=== PATIENT | male | born 1990 | race Caucasian/White ===

== ENCOUNTER 2017-11-26 08:45 | Emergency (ER) | payer SELFPAY ==
[~2017-11-26] VITALS: Ht 177.8 cm; Wt 61.2 kg
[~2017-11-26 08:45] MED LIST: AMOX500C2 PO; AMOX500T2 PO; CEFD300C3 PO; CEPH500C PO; HYDR-229 PO; HYDR-34 PO; HYDR-3456 PO; HYDR-757 PO; HYDR1TAB PO; LIDOCAINE; NAPR550T PO; SULF1TAB35 PO; [UNRECOGNIZED DRUG - OTHER]
[2017-11-26] MEDS ORDERED: NS IV 1000 ML 1,000 ML IV SCH ×2 (09:15)
[2017-11-26 09:31] LABS: BASOPHILS % (AUTO) 0 % (0-10); EOSINOPHILS % (AUTO) 0 % (0-10); HEMATOCRIT 44 % (40-54); HEMOGLOBIN 16.1 G/DL (13.3-17.7); LYMPHOCYTES # (AUTO) 1.4 X 10^3 (1.0-4.0); LYMPHOCYTES % (AUTO) 12 % (12-44); MEAN CORPUSCULAR HEMOGLOBIN 33 PG (25-34); MEAN CORPUSCULAR HGB CONC 36 G/DL (32-36); MEAN CORPUSCULAR VOLUME 90 FL (80-99); MEAN PLATELET VOLUME 9.2 FL (7.4-10.4); MONOCYTES % (AUTO) 9 % (0-12); NEUTROPHILS # (AUTO) 8.8 X 10^3 (1.8-7.8); NEUTROPHILS % (AUTO) 78 % (42-75); PLATELET COUNT 217 10^3/uL (130-400); RED BLOOD COUNT 4.92 10^6/uL (4.35-5.85); RED CELL DISTRIBUTION WIDTH 12.5 % (10.0-14.5); WHITE BLOOD COUNT 11.3 10^3/uL (4.3-11.0)
--- NOTE | 2017-11-26 09:45 | Diagnostic Imaging Report ---
INDICATION: Vomiting. Cough. Comparison with 05/19/2010. FINDINGS: PA and lateral chest show the lungs to be well-aerated. There are no infiltrates or masses. Heart is enlarged. There is no pulmonary edema. No hilar adenopathy. No pneumothorax or pleural effusion. IMPRESSION: Normal PA and lateral chest. Dictated by: Dictated on workstation # [id number]
--- NOTE | 2017-11-26 09:49 | ED Cough/URI ---
General Chief Complaint: Fever-Adult/Adol Stated Complaint: FEVER, VOMITING, BODY ACHES Nursing Triage Note: PT STATES COUGH COLD FLU VOMITING OFF AND ON FOR ABOUT 1 AND 1/2 WEEKS. IBUPROFEN 600 MG IBUPROFEN AT 0800. Source: patient, family Exam Limitations: no limitations History of Present Illness Date Seen by Provider: Nov 26, 2017 Time Seen by Provider: 09:15 Initial Comments This 27-year-old white male presents with a history of the cough congestion and general malaise for the last 10 days. The patient's has had a similar present illness. Next The patient has had vomiting with his present illness. He denies associated diarrhea, flank pain, headache, stiff neck, or photophobia. Allergies and Home Medications Allergies Coded Allergies: NKANo Known Allergies (Unverified Allergy, Mild, 03/17/09) Home Medications Amoxicillin 500 Mg Capsule, 1 EACH PO TID, #20 Prescribed by: ROGELIO LOPEZ on 12/30/13252 Amoxicillin 500 Mg Tablet, 500 MG PO TID, #21 Prescribed by: GOOD GILL on 02/15/161935 Hydrocodone/Acetaminophen 1 Each Tablet, 1 TAB PO Q4-6HR PRN for PAIN, #10 FOR PAIN Prescribed by: ROGELIO LOPEZ on 12/30/13252 Hydrocodone/Acetaminophen 1 Each Tablet, 1 EACH PO Q4H PRN for PAIN, #30 Prescribed by: GOOD GILL on 02/15/161935 Sulfamethoxazole/Trimethoprim 1 Each Tablet, 1 EACH PO BID, #14 Prescribed by: GOOD GILL on 02/15/161935 Constitutional: see HPI, chills, fever, malaise EENTM: No ear pain Respiratory: see HPI, cough, No short of breath, wheezing Cardiovascular: No chest pain Gastrointestinal: No abdominal pain, No diarrhea, vomiting Genitourinary: No dysuria Musculoskeletal: No back pain Skin: No rash Psychiatric/Neurological: No Symptoms Reported Hematologic/Lymphatic: No Symptoms Reported Immunological/Allergic: no symptoms reported Past Grzdyka-Nuykcp-Qnpgxv Hx Patient Social History Alcohol Use: Rarely Uses Alcohol Beverage of Choice: Whiskey Recreational Drug Use: No (SMOKES 1PPD) Type Used: Cigarettes Recent Foreign Travel: No Contact w/Someone Who Travel: No Recent Infectious Disease Expo: No Recent Hopitalizations: No Seasonal Allergies Seasonal Allergies: No Surgeries History of Surgeries: Yes (FACIAL) Respiratory History of Respiratory Disorde: No Cardiovascular History of Cardiac Disorders: No Neurological History of Neurological Disord: No Reproductive System Hx Reproductive Disorders: No Sexually Transmitted Disease: No Genitourinary History of Genitourinary Disor: No Gastrointestinal History of Gastrointestinal Di: No Musculoskeletal History of Musculoskeletal Dis: No Endocrine History of Endocrine Disorders: No Cancer History of Cancer: No Psychosocial History of Psychiatric Problem: No Integumentary History of Skin or Integumenta: No Blood Transfusions History of Blood Disorders: No Reviewed Nursing Assessment Reviewed/Agree w Nursing PMH: Yes Physical Exam Vital Signs Vital Sign - Last 12Hours 11/26/17 08:54 Temp 96.9 Pulse 88 Resp 18 B/P (MAP) 141/97 (112) Pulse Ox 96 O2 Delivery Room Air Capillary Refill : Less Than 3 Seconds General Appearance: WD/WN, no apparent distress Eyes: Bilateral Eye Normal Inspection HEENT: normal ENT inspection, pharynx normal, other (the patient had a nasal fracture week ago and is now having difficulty breathing through his left nostril. There is rather impressive septal deviation of the medial wall of the left naris impinging on the airway.) Neck: non-tender, full range of motion Respiratory: wheezing Cardiovascular: regular rate, rhythm, no edema Gastrointestinal: normal bowel sounds, non tender, soft Extremities: normal range of motion, non-tender, normal inspection Skin: normal color, warm/dry Focused Exam Evaluation Lactate Level Laboratory Tests 11/26/17 09:20: Lactic Acid Level 0.79 Lactic Acid Level Laboratory Tests Test 11/26/17 09:20 Lactic Acid Level 0.79 MMOL/L (0.50-2.00) Laceration Repair : Suture Size: 4-0 Progress/Results/Core Measures Suspected Sepsis Recent Fever Within 48 Hours: Yes Infection Criteria Present: Suspected New Infection New/Unexplained Altered Menta: No Sepsis Screen: No Definite Risk Sepsis Diagnosis: SIRS Temperature:96.9 Pulse: 88 Respiratory Rate: 18 Laboratory Tests 11/26/17 09:20: White Blood Count 11.3H Blood Pressure 141 /97 Mean: 112 Laboratory Tests 11/26/17 09:20: Lactic Acid Level 0.79 Laboratory Tests 11/26/17 09:20: Platelet Count 217 Results/Orders Lab Results Laboratory Tests Test 11/26/17 09:20 Range/Units White Blood Count 11.3 H 4.3-11.0 10^3/uL Red Blood Count 4.92 4.35-5.85 10^6/uL Hemoglobin 16.1 13.3-17.7 G/DL Hematocrit 44 40-54 % Mean Corpuscular Volume 90 80-99 FL Mean Corpuscular Hemoglobin 33 25-34 PG Mean Corpuscular Hemoglobin Concent 36 32-36 G/DL Red Cell Distribution Width 12.5 10.0-14.5 % Platelet Count 217 130-400 10^3/uL Mean Platelet Volume 9.2 7.4-10.4 FL Neutrophils (%) (Auto) 78 H 42-75 % Lymphocytes (%) (Auto) 12 12-44 % Monocytes (%) (Auto) 9 0-12 % Eosinophils (%) (Auto) 0 0-10 % Basophils (%) (Auto) 0 0-10 % Neutrophils # (Auto) 8.8 H 1.8-7.8 X 10^3 Lymphocytes # (Auto) 1.4 1.0-4.0 X 10^3 Monocytes # (Auto) 1.0 0.0-1.0 X 10^3 Eosinophils # (Auto) 0.0 0.0-0.3 10^3/uL Basophils # (Auto) 0.0 0.0-0.1 10^3/uL Lactic Acid Level 0.79 0.50-2.00 MMOL/L Micro Results Microbiology 11/26/17 Influenza Types A,B Antigen (VIANNEY) - Final, Complete My Orders Orders - TYRELL BECERRA MD Cbc With Automated Diff (11/26/17 09:06) Blood Culture (11/26/17 09:06) Lactic Acid Analyzer (11/26/17 09:06) Chest Pa/Lat (2 View) (11/26/17 09:06) Ns Iv 1000 Ml (Sodium Chloride 0.9%) (11/26/17 09:15) Ns Iv 1000 Ml (Sodium Chloride 0.9%) (11/26/17 09:15) Blood Culture (11/26/17 09:33) Influenza A And B Antigens (11/26/17 09:20) Vital Signs/I&O Vital Sign - Last 12Hours 11/26/17 08:54 Temp 96.9 Pulse 88 Resp 18 B/P (MAP) 141/97 (112) Pulse Ox 96 O2 Delivery Room Air Capillary Refill : Less Than 3 Seconds Blood Pressure Mean: 112 Progress Note : Time: 10:47 Progress Note The patient's flu swab was positive for influenza A. The chest x-ray was clear. CBC was unremarkable. Treatment course: The patient received a liter of normal saline while in the emergency department. The patient and his are having persistent coughing particularly at night. I recommended Tussionex to help suppress the cough at night. I recommended fluids, ibuprofen and Tylenol. I recommended that both the patient and his rest at home for the next 3 days and gave them work and school excuses for same. Departure Impression Impression: Primary Impression: Influenza A Additional Impression: FRACTURE OF NASAL BONES, INIT ENCNTR FOR CLOSED FRACTURE Disposition: 01 HOME, SELF-CARE Condition: Improved Departure-Patient Inst. Decision time for Depature: 10:49 Referrals: NATALI ATKINSON MD [facility],LOCAL PHYSICIAN (PCP) Primary Care Physician Patient Instructions: Flu, Adult (DC), Nose Fracture (DC) Add. Discharge Instructions: Tussionex for cough. Ibuprofen alternating with Tylenol for pain and fevers. Rest at home. Follow-up with Dr. Atkinson for nasal fracture. Return if any problems or questions. All discharge instructions reviewed with patient and/or family. Voiced understanding. TYRELL BECERRA MD Nov 26, 2017 09:49
[2017-11-26 11:15] VITALS: BP 142/95
== END 2017-11-26 11:15 | disposition home or self-care (01) ==
LOC: EDUNIT# 08:45 → ER 08:47
DX: S02.2XXA Fracture of nasal bones, initial encounter for closed fracture (principal); J10.1 Influenza due to other identified influenza virus with other respiratory manifestations; Z98.890 Other specified postprocedural states; X58.XXXA Exposure to other specified factors, initial encounter
CPT/HCPCS: 36415; 71046; 83605; 85025; 87040; 87804; 96360